=== PATIENT | male | born 1970 | race Caucasian/White ===

== ENCOUNTER 2016-09-28 08:00 | Outpatient (CLI) | payer OTHER | END 2016-09-28 08:01 | disposition home or self-care (01) | DX: E78.9 Disorder of lipoprotein metabolism, unspecified (principal); E11.9 Type 2 diabetes mellitus without complications ==

== ENCOUNTER 2017-10-08 10:22 | Emergency (ER) | payer OTHER ==
[2017-10-08 10:31] VITALS: BP 103/86
[2017-10-08] MEDS ORDERED: ACETAMINOPHEN 325 MG TABLET PO STA (10:59)
[2017-10-08] MEDS ORDERED: LIDOCAINE PATCH 5% TOP STA (10:59)
--- NOTE | 2017-10-08 11:04 | ED Physician Documentation ---
History of Present Illness - Stated complaint Stated Complaint: LEFT ARM PAIN - Chief complaint Chief Complaint: Ext Problem - Additonal information Additional information: hx from pt 47 male to ER with L arm and L chest pain since yesterday (I clariefied with opt 2/ [place] state today but he is certian is started yesterday and has been constant since) it feels like mm spasm, waxes and wanes worse with moving and touching no fevr cough soa no abd pain no leg pain or swelling no rash has friend or family who is medical and he/she was concerned it could be cardiac Review of Systems Constitutional: denies: Fever, Chills Cardiac: reports: Chest pain / pressure Respiratory: denies: Dyspnea, Cough GI: denies: Abdominal Pain Skin: denies: Rash Musculoskeletal: reports: Extremity pain Endocrine: denies: Easy bruising / bleeding Immunocompromised: denies: Immunocompromised PD PAST MEDICAL HISTORY - Past Medical History Past Medical History: No Cardiovascular: High cholesterol Endocrine/Autoimmune: Type 2 diabetes Musculoskeletal: Chronic back pain Other Past Medical History: tingling in the bilateral leg. - Past Surgical History Past Surgical History: No - Present Medications Home Medications: Ambulatory Orders Medication Instructions Recorded Confirmed Aspirin 1 tab PO DAILY 10/08/17 10/08/17 Esomeprazole Magnesium [Nexium] 1 tab PO DAILY 10/08/17 10/08/17 Gabapentin 4 tab PO BID 10/08/17 10/08/17 Lidocaine Patch 5% [Lidoderm Patch] 1 each TOP DAILY PRN #10 patch 10/08/17 Meloxicam 1 tab PO DAILY 10/08/17 10/08/17 Methocarbamol [Robaxin] 1 tab PO TID 10/08/17 10/08/17 Rosuvastatin Calcium [Crestor] 1 tab PO DAILY 10/08/17 10/08/17 Tamsulosin [Flomax] 1 tab PO DAILY 10/08/17 10/08/17 metFORMIN [Glucophage] 1 tab PO BID 10/08/17 10/08/17 - Allergies Allergies/Adverse Reactions: Allergies Allergy/AdvReac Type Severity Reaction Status Date / Time niacin Allergy Rash Verified 10/08/17 10:32 - Social History Does the pt smoke?: No Smoking Status: Former smoker Does the pt drink ETOH?: Yes ETOH Use: Beer Does the pt have substance abuse?: No - Immunizations Immunizations are current?: Yes - POLST Patient has POLST: No PD ED PE NORMAL - Vitals Vital signs reviewed: Yes - Cardiac Cardiac: RRR - Respiratory Respiratory: No respiratory distress, Clear bilaterally - Abdomen Abdomen: Soft, Non tender - Derm Derm: Normal color - Extremities Extremities: No deformity, No tenderness to palpate, Normal ROM s pain, Other ( TTP upper left amr and ant chest wall, MSV intact to hand) - Neuro Neuro: Alert and oriented X 3, No motor deficit, No sensory deficit Results - Vitals Vitals: Vital Signs - 24 hr 10/08/17 10:29 Temperature 96.5 C H Heart Rate 74 Respiratory 16 Rate Blood Pressure 103/86 H O2 Saturation 98 Oxygen O2 Source Room air - EKG (time done) 1114 Rate: Rate (enter#) (80) Rhythm: NSR [place]: Normal Intervals: Normal [place] Ischemia: Normal ST segments - Labs Labs: Laboratory Tests 10/08/17 11:18 Troponin I < 0.04 - Rads (name of study) CXR Radiology: See rad report (NACPD) PD MEDICAL DECISION MAKING - ED course ED course: EKG trop neg after sx for 12 + hr rules out ACS PERC neg nl mediastinum on CXR and pain worse with touching and moving - suspect radicular or shingles Departure - Departure Disposition: 01 Home, Self Care Clinical Impression: Pain in extremity Qualifiers: Extremity pain location: upper extremity Laterality: left Qualified Code(s): M79.602 - Pain in left arm Chest pain Qualifiers: Chest pain type: unspecified Qualified Code(s): R07.9 - Chest pain, unspecified Instructions: ED Chest Pain Atypical Unkn Cause Follow-Up: Leon Meyer MD [Primary Care Provider] - Prescriptions: Lidocaine Patch 5% [Lidoderm Patch] 1 each TOP DAILY PRN #10 patch PRN Reason: Pain Comments: Your tests came back fine - the EKG and blood test do not suggest a heat attack , your vital signs and exam do not suggest a blood clot in your lungs, and your xray does not show an aneursym I think the pain is either developing shingles, radicular ( pinched nerve- or in the muscles / soft tissue of your arm and chest wall. Recommend you can go home and take motrin and use the lidocaine patches as needed for the pain. Please watch for a shingles rash as we discussed and return to the ER or see your PMD for viral medication if that develops
--- NOTE | 2017-10-08 11:53 | XRAY Report ---
EXAM: CHEST RADIOGRAPHY EXAM DATE: 10/08/2017 11:41 AM. CLINICAL HISTORY: Chest pain. COMPARISON: None. TECHNIQUE: 2 views. FINDINGS: Lungs/Pleura: No focal opacities evident. No pleural effusion. No pneumothorax. Normal volumes. Mediastinum: Heart and mediastinal contours are unremarkable. Other: Chronic appearing mild to moderate midthoracic compression deformity. [id number] multile mickie thoracic spinal degeneration. IMPRESSION: No acute cardiopulmonary abnormality. Other findings as noted above. [facility] Referring Provider Line: [phone] SITE ID: [id number]
== END 2017-10-08 12:11 | disposition home or self-care (01) ==
LOC: ED 10:22
DX: R07.9 Chest pain, unspecified (principal); M79.602 Pain in left arm; E11.9 Type 2 diabetes mellitus without complications; Z79.84 Long term (current) use of oral hypoglycemic drugs; E78.00 Pure hypercholesterolemia, unspecified; Z79.82 Long term (current) use of aspirin; Z87.891 Personal history of nicotine dependence
CPT/HCPCS: 36415; 71046; 84484; 93005; 99283; 99284; A9270

== ENCOUNTER 2020-09-25 08:01 | Outpatient (CLI) | payer OTHER ==
--- NOTE | 2020-09-25 09:26 | XRAY Report ---
PROCEDURE: Cervical Spine 2 View INDICATIONS: neck and tailbone pain from fall 1.5.21 TECHNIQUE: 3 view(s) of the cervical spine were acquired. COMPARISON: None. FINDINGS: Bones: No fractures or dislocations to the T1 level. The lateral masses of C1 appear intact on the odontoid view. No suspicious bony lesions. Cervical spondylosis. Disc height loss and anterior oste ophyte at C6-C7. Uncovertebral joint hypertrophy at C5-C6 and C6-C7. Soft tissues: No prevertebral soft tissue swelling. IMPRESSION: No evidence acute cervical fracture or dislocation. Cervical spondylosis. Reviewed by: Yong Orellana MD on 09/25/2020 9:25 AM [facility] Approved by: Yong Orellana MD on 09/25/2020 9:25 AM [facility] Station ID: [id number]
--- NOTE | 2020-09-25 09:31 | XRAY Report ---
PROCEDURE: Sacrum/Coccyx INDICATIONS: neck and tail bone pain from fall 1.5.21 TECHNIQUE: 3 views of the sacrum and coccyx acquired. COMPARISON: None FINDINGS: Bones: On the lateral view, there is a coccygeal fracture which is minimally displaced, of unknown ch ronicity. No suspicious bony lesions. Soft tissues: Visualized bowel gas pattern is normal. No suspicious soft tissue densities. IMPRESSION: Minimally displaced coccygeal fracture of unknown chronicity. Reviewed by: Yong Orellana MD on 09/25/2020 9:30 AM PST Approved by: Yong Orellana MD on 09/25/2020 9:30 AM PST Station ID: [id number]
--- OUTSIDE RECORDS SUMMARY | 2020-09-30 01:27 | EXTERNAL MEDICAL SUMMARY RPT | Continuity of Care Document ---
:1970 Demographics Phone Unavailable Preferred Language Unknown Marital Status Unknown Anabaptism Affiliation Unknown Race Unknown Ethnic Group Unknown Author Organization [facility] Address [address] [place] [address] Phone Care Team Providers Name Role Phone Mehul Unavailable Unavailable Raygoza Unavailable Unavailable Gravatt Unavailable Unavailable Problems date description facility 2013-08-19 11:25 DIAB YAQUELIN WO COMPL, TYPE II OR [facility] UNSPEC TYPE, NOT UNCNTRLD 2013-08-19 11:25 HYPERLIPIDEMIA NEC/NOS [facility] 2013-08-20 10:47 DIAB YAQUELIN WO COMPL, TYPE II OR [facility] UNSPEC TYPE, NOT UNCNTRLD 2013-08-20 10:47 HYPERLIPIDEMIA NEC/NOS [facility] 2013-11-18 11:04 DIAB YAQUELIN WO COMPL, TYPE II OR [facility] UNSPEC TYPE, NOT UNCNTRLD 2013-11-18 11:04 HYPERLIPIDEMIA NEC/NOS [facility] 2013-11-18 11:04 RESTLESS LEGS SYNDROME [facility] 2013-11-20 07:34 DIAB YAQUELIN WO COMPL, TYPE II OR [facility] UNSPEC TYPE, NOT UNCNTRLD 2013-11-20 07:34 VITAMIN D DEFICIENCY NOS [facility] 2013-11-20 07:34 HYPERLIPIDEMIA NEC/NOS [facility] 2013-11-20 07:34 RESTLESS LEGS SYNDROME [facility] 2013-11-20 07:34 HYPERTENSION NOS [facility] 2013-11-20 07:34 OTH MED,LT,CURRENT USE [facility] 2013-12-03 10:20 ACUTE URI NOS [facility] 2014-01-13 06:12 DIAB YAQUELIN WO COMPL, TYPE II OR [facility] UNSPEC TYPE, NOT UNCNTRLD 2014-01-13 06:12 ABNORM RED BLOOD CELLS NEC [facility] 2014-01-13 06:12 OTH MED,LT,CURRENT USE [facility] 2014-02-24 10:06 DIAB YAQUELIN WO COMPL, TYPE II OR [facility] UNSPEC TYPE, NOT UNCNTRLD 2014-02-24 10:06 HYPERLIPIDEMIA NEC/NOS [facility] 2014-02-24 10:06 JOINT PAIN-UNSPEC [facility] 2014-04-08 14:36 SYNCOPE AND COLLAPSE [facility] 2014-04-11 12:56 PAIN IN LIMB [facility] 2014-04-21 06:37 DIAB YAQUELIN WO COMPL, TYPE II OR [facility] UNSPEC TYPE, NOT UNCNTRLD 2014-04-21 06:37 HYPERLIPIDEMIA NEC/NOS [facility] 2014-04-21 06:37 OTH MED,LT,CURRENT USE [facility] 2014-04-23 08:24 DIAB YAQUELIN WO COMPL, TYPE II OR [facility] UNSPEC TYPE, NOT UNCNTRLD 2014-04-23 08:[address] [facility] 2014-09-09 09:46 DIAB YAQUELIN WO COMPL, TYPE II OR [facility] UNSPEC TYPE, NOT UNCNTRLD 2014-09-09 09:[address] [facility] 2014-09-09 13:53 DIAB YAQUELIN WO COMPL, TYPE II OR [facility] UNSPEC TYPE, NOT UNCNTRLD 2014-09-09 13:[address] [facility] 2014-09-09 13:53 OTH MED,LT,CURRENT USE [facility] 2015-03-12 10:32 DIAB YAQUELIN WO COMPL, TYPE II OR [facility] UNSPEC TYPE, NOT UNCNTRLD 2015-03-12 10:32 HYPERLIPIDEMIA NEC/NOS [facility] 2015-03-12 10:[address] 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 METABOLISM, UNSPECIFIED 2017-10-08 10:22 TYPE 2 DIABETES MELLITUS WITHOUT [facility] COMPLICATIONS 2017-10-08 10:22 PURE HYPERCHOLESTEROLEMIA, [facility] UNSPECIFIED 2017-10-08 10:22 PAIN IN LEFT ARM [facility] 2017-10-08 10:22 CHEST PAIN, UNSPECIFIED [facility] 2017-10-08 10:22 LONG-TERM (CURRENT) USE OF ASPIRIN [facility] 2017-10-08 10:22 LONG-TERM (CURRENT) USE OF ORAL Located within [facility] HYPOGLYCEMIC DRUGS 2017-10-08 10:22 PERSONAL HISTORY OF NICOTINE [facility] DEPENDENCE 2020-09-25 08:01 SACROCOCCYGEAL DISORDERS, NOT [facility] ELSEWHERE CLASSIFIED 2020-09-25 08:01 RADICULOPATHY, CERVICAL REGION [facility] 2020-09-25 08:01 CERVICALGIA [facility] Allergies date description facility niacin [facility] niacin [facility] TAMSULOSIN HCL [facility] niacin [facility] niacin [facility] Social History date description facility [phone]
== END 2020-09-25 08:02 | disposition home or self-care (01) ==
LOC: DI 08:01
PROVIDERS: ATTEND Physician Assistant Medical
DX: M47.812 Spondylosis without myelopathy or radiculopathy, cervical region (principal); S32.2XXA Fracture of coccyx, initial encounter for closed fracture

== ENCOUNTER 2021-09-01 09:46 | Emergency (ER) | payer OTHER ==
--- NOTE | 2021-09-01 10:00 | ED Physician Documentation ---
History of Present Illness - Stated complaint Stated Complaint: LAB - Chief complaint Chief Complaint: General - History obtained from History obtained from: Patient - Additonal information Additional information: Patient is a 51-year-old male referred to the emergency department for concern for hypomagnesemia. Patient was evaluated for persistent right-sided chest pain at the [facility] yesterday. States he has had the same reproducible right-sided chest pain for the last several months. Was called this morning and was informed that he had severely low magnesium and was informed to come to the emergency department. PD PAST MEDICAL HISTORY - Past Medical History Cardiovascular: High cholesterol Endocrine/Autoimmune: Type 2 diabetes Musculoskeletal: Chronic back pain - Past Surgical History Past Surgical History: No - Present Medications Home Medications: Ambulatory Orders Medication Instructions Recorded Confirmed Aspirin 1 tab PO DAILY 10/08/17 10/08/17 Esomeprazole Magnesium [Nexium] 1 tab PO DAILY 10/08/17 10/08/17 Gabapentin 4 tab PO BID 10/08/17 10/08/17 Lidocaine Patch 5% [Lidoderm Patch] 1 each TOP DAILY PRN #10 patch 10/08/17 Meloxicam 1 tab PO DAILY 10/08/17 10/08/17 Rosuvastatin Calcium [Crestor] 1 tab PO DAILY 10/08/17 10/08/17 Tamsulosin [Flomax] 1 tab PO DAILY 10/08/17 10/08/17 metFORMIN [Glucophage] 1 tab PO BID 10/08/17 10/08/17 methocarbamoL [Robaxin] 1 tab PO TID 10/08/17 10/08/17 Magnesium Oxide [Mag Ox] 400 mg PO 0800 30 Days #30 tablet 09/01/21 Potassium Chloride [Klor-Con M20] 20 meq PO DAILY #30 tab 09/01/21 - Allergies Allergies/Adverse Reactions: Allergies Allergy/AdvReac Type Severity Reaction Status Date / Time niacin Allergy Rash Verified 09/01/21 09:51 - Social History Does the pt smoke?: No Smoking Status: Former smoker Does the pt drink ETOH?: Yes Does the pt have substance abuse?: No - Immunizations Immunizations are current?: Yes - POLST Patient has POLST: No Results - Vitals Vitals: Vital Signs - 24 hr 09/01/21 09/01/21 09:51 10:08 Temperature 36.8 C Heart Rate 74 84 Respiratory 16 14 Rate Blood Pressure 125/80 130/79 O2 Saturation 100 98 Oxygen O2 Source Room air - EKG (time done) 1007 Rate: Rate (enter#) (88) Rhythm: NSR [place]: Normal Intervals: Normal [place]. No: Prolonged QT QRS: Normal Ischemia: Normal ST segments. No: Hyperacute T waves, T wave inversion Compare to prior EKG: Unchanged from prior EKG Computer interpretation: No: Disagree with computer - Labs Labs: Laboratory Tests 09/01/21 09/01/21 09/01/21 10:16 10:16 10:16 WBC 6.5 RBC 4.65 L Hgb 13.9 L Hct 40.8 L MCV 87.7 MCH 29.9 MCHC 34.1 RDW 13.9 Plt Count 183 MPV 11.2 Neut # (Auto) 3.9 Lymph # (Auto) 1.9 [place] # (Auto) 0.5 Eos # (Auto) 0.1 Baso # (Auto) 0.1 Absolute Nucleated RBC 0.00 Nucleated RBC % 0.0 Sodium 139 Potassium 3.2 L Chloride 103 Carbon Dioxide 25 Anion Gap 11.0 BUN 13 Creatinine 0.9 Estimated GFR (MDRD) 88 L Glucose 164 H Calcium 8.6 Magnesium 1.1 L Total Bilirubin 1.1 H AST 20 ALT 24 Alkaline Phosphatase 32 L Troponin I High Sens 3.9 Total Protein 7.0 Albumin 4.1 Globulin 2.9 Albumin/Globulin Ratio 1.4 Departure - Departure Disposition: 01 Home, Self Care Clinical Impression: Hypokalemia, Hypomagnesemia, Acute pain Condition: Good Instructions: ED Potassium Deficiency Prescriptions: Potassium Chloride [Klor-Con M20] 20 meq PO DAILY #30 tab Magnesium Oxide [Mag Ox] 400 mg PO 0800 30 Days #30 tablet Comments: Thank you for allowing us to care for you today at [facility]. Discharging you with some magnesium and potassium supplements at like you to start taking at home. Please continue to abstain from your antiacid medication until cleared by your primary care doctor. If it anytime you have any new or worsening symptoms please do not hesitate to return to the emergency department. Discharge Date/Time: 09/01/21 12:16
[2021-09-01 10:11] VITALS: BP 130/79
[2021-09-01 10:21] LABS: BASOPHILS # (AUTO) 0.1 10^3/uL (0.0-0.1); BASOPHILS % (AUTO) 0.9 %; EOSINOPHILS # (AUTO) 0.1 10^3/uL (0.0-0.7); EOSINOPHILS % (AUTO) 2.2 %; HCT - HEMATOCRIT 40.8 % (42.0-52.0); HGB - HEMOGLOBIN 13.9 g/dL (14.0-18.0); LYMPHOCYTES # (AUTO) 1.9 10^3/uL (1.5-3.5); MEAN CORPUSCULAR HEMOGLOBIN 29.9 pg (27.0-31.0); MEAN CORPUSCULAR HGB CONC 34.1 g/dL (32.0-36.0); MEAN CORPUSCULAR VOLUME 87.7 fL (80.0-94.0); MEAN PLATELET VOLUME 11.2 fL (7.4-11.4); MONOCYTES # (AUTO) 0.5 10^3/uL (0.0-1.0); MONOCYTES % (AUTO) 7.8 %; NEUTROPHILS # (AUTO) 3.9 10^3/uL (1.5-6.6); NEUTROPHILS % (AUTO) 59.6 %; PLT - PLATELET COUNT 183 10^3/uL (130-450); RED BLOOD COUNT 4.65 10^6/uL (4.70-6.10); RED CELL DISTRIBUTION WIDTH 13.9 % (12.0-15.0); WHITE BLOOD COUNT 6.5 x10^3/uL (4.8-10.8)
[2021-09-01 10:34] LABS: ALBUMIN 4.1 g/dL (3.2-5.5); ALBUMIN/GLOBULIN RATIO 1.4 (1.0-2.2); BILIRUBIN,TOTAL 1.1 mg/dL (0.2-1.0); CALCIUM 8.6 mg/dL (8.5-10.3); CREATININE 0.9 mg/dL (0.6-1.2); MAGNESIUM 1.1 mg/dL (1.7-2.8); POTASSIUM 3.2 mmol/L (3.5-5.0)
[2021-09-01] MEDS ORDERED: MAGNESIUM SULFATE 2 GRAM 2 GM/50 ML BAG IV ONE (10:35)
== END 2021-09-01 12:16 | disposition home or self-care (01) ==
LOC: ED 09:46
DX: E83.42 Hypomagnesemia (principal); E87.6 Hypokalemia; R07.9 Chest pain, unspecified; E11.9 Type 2 diabetes mellitus without complications; Z79.84 Long term (current) use of oral hypoglycemic drugs; Z79.82 Long term (current) use of aspirin; Z87.891 Personal history of nicotine dependence
CPT/HCPCS: 36415; 80053; 83735; 84484; 85025; 93005; 96365; 99283

== ENCOUNTER 2021-12-18 09:40 | Outpatient (CLI) | payer OTHER ==
[2021-12-18 14:16] LABS: HCT - HEMATOCRIT 41.9 % (42.0-52.0); HGB - HEMOGLOBIN 13.9 g/dL (14.0-18.0); MEAN CORPUSCULAR HGB CONC 33.2 g/dL (32.0-36.0); MEAN CORPUSCULAR VOLUME 90.5 fL (80.0-94.0); MEAN PLATELET VOLUME 11.4 fL (7.4-11.4); RED BLOOD COUNT 4.63 10^6/uL (4.70-6.10); RED CELL DISTRIBUTION WIDTH 13.5 % (12.0-15.0); WHITE BLOOD COUNT 6.2 x10^3/uL (4.8-10.8)
[2021-12-18 14:46] LABS: CRP - C-REACTIVE PROTEIN 1.5 mg/dL (0-1.0)
[2021-12-18 15:21] LABS: URIC ACID 3.7 mg/dL (2.6-7.2)
[2021-12-18 16:03] LABS: RHEUMATOID FACTOR NEGATIVE (Negative)
[2021-12-21 17:02] LABS: DNA (DS) ANTIBODY <1 IU/mL
[2021-12-21 18:02] LABS: CYCLIC CITRULL PEPTIDE CCP IGG <16 UNITS
[2021-12-22 12:26] LABS: ANA PATTERN Nuclear, Homogeneous; ANA SCREEN POSITIVE (NEGATIVE)
== END 2021-12-18 09:41 | disposition home or self-care (01) ==
LOC: LAB.N 09:40
PROVIDERS: ATTEND Family Medicine
DX: M79.672 Pain in left foot (principal)
CPT/HCPCS: 36415; 84550; 85027; 85651; 86038; 86140; 86200; 86225; 86430